=== PATIENT | female | born 1970 | race Caucasian/White ===

== ENCOUNTER 2023-05-13 06:15 | Day surgery (SDC) | payer OTHER ==
[~2023-05-13 06:15] MED LIST: Acetaminophen 325 MG Tab PO ONE; Dexamethasone 4 MG/ML 5 ML MDV ONE; EPINEPHrine 1 MG/ML SDV ONE; Lactated Ringers 1,000 ML IV SCH; Midazolam 1 MG/ML 2 ML SDV ONE; Morphine 8 MG, EPINEPHrine 0.3 MG, Cefuroxime 750 MG, Ketorolac 30 MG, Sodium Chloride ... PRN; Pregabalin 25 MG Cap PO ONE; Propofol 200 MG/20 ML SDV ONE; Sodium Chloride 0.9% 10 ML Syringe FLUSH PRN; Sodium Chloride 0.9% 10 ML Syringe FLUSH SCH; oxyCODONE ER 10 MG TAB.ER PO ONE
[2023-05-13] MEDS ORDERED: Ropivacaine 0.5% 5 MG/ML 30 ML SDV ONE (06:18)
[2023-05-13] MEDS ORDERED: dexmedeTOMIDine HCl 200 MCG/2 ML SDV ONE (06:18)
[2023-05-13] MEDS ORDERED: Vancomycin 1 GM SDV ONE (06:22)
[2023-05-13] MEDS ORDERED: Tranexamic Acid 1,000 MG/10 ML Vial ONE (06:22)
[2023-05-13] MEDS ORDERED: HYDROmorphone 0.5 MG/0.5 ML Syringe IVPUSH PRN (06:50)
[2023-05-13] MEDS ORDERED: fentaNYL 100 MCG/2 ML SDV IVPUSH PRN (06:50)
[2023-05-13] MEDS ORDERED: ceFAZolin 2 GM Vial ONE (07:13)
[2023-05-13] MEDS ORDERED: Lidocaine 1% PF 2 ML SDV ONE (07:15)
[2023-05-13] MEDS ORDERED: Ondansetron 4 MG/2 ML SDV ONE (07:17)
[2023-05-13] MEDS ORDERED: ePHEDrine 50 MG/ML SDV ONE (07:46)
[2023-05-13] MEDS ORDERED: Lactated Ringers 1,000 ML IV ONE (08:00)
[2023-05-13] MEDS ORDERED: Cyclobenzaprine 10 MG Tab PO PRN (09:00)
[2023-05-13] MEDS: oxyCODONE 5 MG Tab PO PRN ×2 (11:00→13:38)
== END 2023-05-13 13:30 | disposition home or self-care (01) ==
LOC: JD.SDS 06:15
PROVIDERS: ATTEND Orthopaedic Surgery
DX: M17.12 Unilateral primary osteoarthritis, left knee (principal); F41.1 Generalized anxiety disorder; Z79.899 Other long term (current) drug therapy
CPT/HCPCS: 0055T; 27447; 64447; 73560; 97110; 97116; 97161; A9270; C1713; C1776; J0171; J0690; J0697; J1100; J1885; J2250; J2270; J2405; J2704; J2795; J3370; J7030; J7120; 01402; J3490